=== PATIENT | male | born 1965 | race Caucasian/White ===

== ENCOUNTER → 2018-06-05 10:26 | Outpatient (CLI) | payer OTHER, SELFPAY ==
--- NOTE | 2018-06-05 10:34 | RAD_ITS ---
STUDY: X-RAY - PELVIS REASON FOR EXAM: Male, 52 years old. Inflammatory polyarthropathy. TECHNIQUE: One view of the pelvis was obtained. COMPARISON: None. FINDINGS: There is a non-specific bowel gas pattern. Normal visualized soft tissue structures. There are multiple calcified phleboliths. Normal bilateral iliac wings, sacroiliac joints and visualized sacrum. Normal visualized bilateral superior and inferior pubic rami. Normal pubic symphysis. Normal ischial tuberosities. There is a right total hip arthroplasty. The prosthetic components are intact and articulate normally with each other. There is no loosening from the underlying bone or evidence of fracture. There is a left total hip arthroplasty. The prosthetic components are intact and articulate normally with each other. There is no loosening from the underlying bone or evidence of fracture. RAD/Pelvis 1 or 2 Views IMPRESSION: Bilateral hip replacements. Electronically Signed: Jw Omer DO at 17:39 EDT Tel [phone], Service support ,
[2018-06-05 12:00] LABS: Absolute Lymphocyte Count 1.51 X10^3/ul (0.83-4.51); Basophil# 0.03 X10^3/uL; Basophil% 0.4 % (0-1); Eosinophil# 0.05 X10^3/uL; Eosinophils% 0.6 % (0-5); Hematocrit 38.2 % (40-54); Hemoglobin 12.8 g/dl (13.0-16.5); Lymphocyte # 1.51 X10^3/ul (4.0); Lymphocyte % 18.9 % (19-41); Mean Corp Hgb Conc 33.5 g/gl (32-36); Mean Corpuscular Volume 104.4 fL (80-94); Mean Platelet Vol. 10.8 fl (6.2-12.0); Monocyte# 0.42 X10^3/uL; Monocyte% 5.3 % (0-10); Neutrophil # 5.96 X10^3/uL (2.7-7.7); Neutrophil % 74.5 % (47-70); Platelet Count 265 K/mm3 (150-450); RBC Distribution Width CV 12.9 % (11.6-14.6); Red Blood Count 3.66 M/mm3 (4.6-6.2)
[2018-06-05 12:19] LABS: Erythrocyte Sedimentation Rate 6 mm/hr (0-20)
[2018-06-05 12:23] LABS: POSITIVE COUNT NO; POSITIVE DIFFERENTIAL NO; POSITIVE MORPHOLOGY NO
[2018-06-05 13:20] LABS: ALB/GLOB Ratio 0.8 RATIO (0.9-2.4); AST(SGOT) 10 U/L (15-37); Alanine Aminotransfer ALT/SGPT 22 U/L (16-61); Albumin, Serum 3.2 g/dL (3.2-5.0); Alkaline Phosphatase 71 U/L (45-117); Anion Gap 9 (5-15); BUN 13 mg/dL (7-18); BUN/Creat Ratio 11.8 RATIO (10-20); CRP 5.94 mg/L (0.0-3.0); Chloride 108 mmol/L (98-107); EST Glomerular Filtration Rate 74 mL/min (>60); Est Glom Filt Rate - Afr Amer 90 mL/min (>60); Glucose 121 mg/dL (74-106); Potassium 4.6 mmol/L (3.5-5.1); Protein, Total 7.2 g/dL (6.4-8.2); Rheumatoid Factor < 10.0 IU/mL (<15); Sodium Level 143 mmol/L (136-145); Uric Acid 7.3 mg/dL (3.5-7.2)
[2018-06-07 08:24] LABS: ANTINUCLEAR ANTIBODIES DIRECT Negative (Negative)
[2018-06-12 12:42] LABS: CCP IgG Antibodies 6 units (0-19); HEPATITIS B SURFACE AG Negative (Negative); HLA B27 Positive (.); Hep B Surface Antibodies Non Reactive (.); Hep C Antibodies 0.1 s/co ratio (0.0-0.9)
== END ==
PROVIDERS: Visit Provider Internal Medicine Rheumatology
DX: M06.4 Inflammatory polyarthropathy (principal); M10.9 Gout, unspecified; M72.0 Palmar fascial fibromatosis [Dupuytren]
CPT/HCPCS: 36415; 72170; 80053; 81374; 84550; 85025; 85652; 86038; 86140; 86200; 86431; 86706; 86803; 87340